=== PATIENT | female | born 2000 | race Two or more races ===

== ENCOUNTER 2023-01-11 14:12 | Emergency (ER) | payer OTHER ==
[~2023-01-11] VITALS: Ht 172.7 cm; Wt 86.2 kg
[2023-01-11 16:17] LABS: HEMATOCRIT 32.4 % (36.0-45.00); HEMOGLOBIN 10.3 g/dL (12.0-15.00); MEAN CELL VOLUME 77.9 fL (80.00-100.00); MEAN CORPUSCULAR HEMOGLOBIN 24.8 pg (27.00-32.0); MEAN CORPUSCULAR HGB CONC 31.8 g/dl (32.0-36.0); PLATELET COUNT 364 K/uL (150-450); RED BLOOD COUNT 4.16 M/uL (4.00-6.00); RED CELL DISTRIBUTION WIDTH 15.3 % (11.5-14.5)
[2023-01-11 16:43] LABS: CALCIUM 9.1 mg/dL (8.5-10.1); CREATININE SERUM 0.83 mg/dL (0.55-1.02); GFR 84.46; POTASSIUM 3.65 mEq/L (3.5-5.1)
[2023-01-11] MEDS ORDERED: IRON325 MG PO (17:36)
== END 2023-01-11 17:43 | disposition home or self-care (01) ==
LOC: ER 14:12
PROVIDERS: General Practice
DX: N93.9 Abnormal uterine and vaginal bleeding, unspecified (principal); Z88.8 Allergy status to other drugs, medicaments and biological substances